=== PATIENT | female | born 1965 | race Caucasian/White ===

== ENCOUNTER 2018-03-04 17:29 | Emergency (ER) | payer OTHER ==
[2018-03-04 17:30] VITALS: BMI 23.1
[2018-03-04 17:50] VITALS: RESP 16; TEMP 97.3; O2SAT 98
--- NOTE | 2018-03-04 17:57 | C.PDOC ---
History Of Present Illness 52 y/o female presents to the ED complaining of right knee pain for 1 week. Reports intermittent pain and swelling for the past 2-3 months, now more frequent and intense. Patient tried taking Tylenol without improvement. Sates she would occasionally bang my knee months ago but no recent trauma. Also feels a cracking sound inside the knee when she walks. Pain is worse when ascending or descending stairs. Denies any associated numbness, tingling, or other complaints. Time Seen by Provider: 03/04/18 17:50 Chief Complaint (Nursing): Lower Extremity Problem/Injury History Per: Patient History/Exam Limitations: no limitations Onset/Duration Of Symptoms: Days Current Symptoms Are (Timing): Still Present Past Medical History Reviewed: Historical Data, Nursing Documentation, Vital Signs Vital Signs: Last Vital Signs Temp 97.3 F L 03/04/18 17:46 Pulse 82 03/04/18 17:46 Resp 16 03/04/18 17:46 BP 135/84 03/04/18 17:46 Pulse Ox 98 03/04/18 17:46 - Medical History PMH: No Chronic Diseases Family History: States: No Known Family Hx - Social History Hx Tobacco Use: No Hx Alcohol Use: No Hx Substance Use: No - Immunization History Hx Tetanus Toxoid Vaccination: No Hx Influenza Vaccination: No Hx Pneumococcal Vaccination: No Review Of Systems Except As Marked, All Systems Reviewed And Found Negative. Constitutional: Negative for: Fever, Chills Musculoskeletal: Positive for: Leg Pain (right knee pain) Skin: Negative for: Rash Neurological: Negative for: Weakness, Numbness, Other (tingling) Physical Exam - Physical Exam Appears: Non-toxic, No Acute Distress Skin: Warm, Dry, No Rash Head: Atraumatic, Normacephalic Eye(s): bilateral: Normal Inspection Extremity: Normal ROM (Full AROM of right knee without difficulty), No Tenderness, No Deformity, Swelling (Right knee with moderate effusion, no laxity), Other (Patient reports pain with weight bearing) Pulses: Left Dorsalis Pedis: Normal, Right Dorsalis Pedis: Normal Neurological/Psych: Oriented x3, Normal Speech, Normal Motor, Normal Sensation ED Course And Treatment O2 Sat by Pulse Oximetry: 98 (RA) Pulse Ox Interpretation: Normal - Other Rad XR right knee X-Ray: Interpreted by Me, Viewed By Me Interpretation: No acute fracture, no dislocation Medical Decision Making Medical Decision Making: Impression: Right knee pain Plan: X-ray of right knee taken. Motrin PO administered for pain. Informed patient of negative results. Disposition Counseled Patient/Family Regarding: Studies Performed, Diagnosis, Need For Followup, Rx Given - Disposition Referrals: [facility] [Outside] [facility] [Outside] Adriano Mims III, MD [Staff Provider] - Disposition: HOME/ ROUTINE Disposition Time: 17:56 Condition: IMPROVED Prescriptions: Ibuprofen [Motrin] 600 mg PO Q6 #30 tab Instructions: Chronic Knee Pain (DC) Forms: [employer] (Khmer) - POA Present On Arrival: None - Clinical Impression Clinical Impression: Knee swelling, Arthritic-like pain - Scribe Statement The provider has reviewed the documentation as recorded by the Felisa Fontenot Provider Attestation: All medical record entries made by the Conyibe were at my direction and personally dictated by me. I have reviewed the chart and agree that the record accurately reflects my personal performance of the history, physical exam, medical decision making, and the department course for this patient. I have also personally directed, reviewed, and agree with the discharge instructions and disposition.
[2018-03-04 18:47] VITALS: BP 133/79; PULSE 84
--- NOTE | 2018-03-04 18:51 | RAD ---
Date of service: 03/04/2018 PROCEDURE: Right Knee Radiographs. HISTORY: TRAUMA COMPARISON: None. FINDINGS: BONES: No acute fracture. JOINTS: Tricompartmental narrowing with mild degenerative spurring. JOINT EFFUSION: None. OTHER FINDINGS: None. IMPRESSION: No demonstrated fracture dislocation. Mild tricompartmental degenerative changes.
== END 2018-03-04 18:46 | disposition home or self-care (01) ==
LOC: C.ER 17:29
DX: M25.561 Pain in right knee (principal); M79.89 Other specified soft tissue disorders